=== PATIENT | male | born 1990 | race African-American/Black ===

== ENCOUNTER 2017-03-05 08:52 | Outpatient (CLI) | payer OTHER ==
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
== END 2017-03-05 08:53 | disposition home or self-care (01) ==
LOC: TBSIIMAG 08:52
PROVIDERS: ATTEND Family Medicine
DX: M23.91 Unspecified internal derangement of right knee (principal)

== ENCOUNTER 2017-05-18 09:34 | Outpatient (CLI) | payer OTHER ==
[2017-05-18 10:39] LABS: Hematocrit 47.6 % (42.0-52.0); Mean Platelet Volume 7.4 fL (7.4-10.4); Red Blood Cell (RBC) Count 5.24 mill/uL (4.70-6.10); White Blood Cell (WBC) Count 9.1 thou/uL (4.8-10.8)
[2017-05-18 11:04] LABS: Anion Gap 15 mmol/L (10-20); BUN (Urea Nitrogen) 16 mg/dL (8.9-20.6); Calc. Creatinine Clearance 0 mL/min (70-130); Carbon Dioxide 25 mmol/L (22-29); Chloride 104 mmol/L (98-107); Estimated GFR-MDRD Greater than 90
--- NOTE | 2017-05-18 12:25 | EKG ---
Test Reason : Blood Pressure : / mmHG Vent. Rate : 071 BPM Atrial Rate : 071 BPM P-R Int : 190 ms QRS Dur : 102 ms QT Int : 372 ms P-R-T Axes : 057 027 020 degrees QTc Int : 404 ms Normal sinus rhythm RSR' or QR pattern in V1 suggests right ventricular conduction delay Borderline ECG No previous ECGs available Confirmed by ROSIBEL DEVRIES ([id number]) on 05/18/2017 12:25:12 PM Referred By: ALEXANDER Confirmed By:ROSIBEL DEVRIES
== END 2017-05-18 09:35 | disposition home or self-care (01) ==
LOC: LABBT 09:34
PROVIDERS: ATTEND Orthopaedic Surgery
DX: Z01.812 Encounter for preprocedural laboratory examination (principal); S83.511A Sprain of anterior cruciate ligament of right knee, initial encounter; S83.421A Sprain of lateral collateral ligament of right knee, initial encounter; S83.411A Sprain of medial collateral ligament of right knee, initial encounter
CPT/HCPCS: 80048; 85027; 93005; 93010

== ENCOUNTER 2017-05-22 06:54 | Day surgery (SDC) | payer OTHER ==
[2017-05-18 09:56] VITALS: BMI 43.3
[2017-05-22] MEDS ORDERED: CEFAZOLIN/Water 2 GM/20 ML SYRINGE ONE (07:40)
[2017-05-22] MEDS ORDERED: Midazolam HCl 2 mg/2 ml Vial ONE ×2 (08:12→08:49)
[2017-05-22] MEDS ORDERED: Fentanyl 100 MCG/2 ML VIAL ONE ×2 (08:13→08:49)
[2017-05-22] MEDS ORDERED: HYDROcodone/Acetaminophen 7.5/325 mg Tablet ONE ×2 (14:05)
--- NOTE | 2017-05-22 14:09 | OP ---
DATE OF PROCEDURE: 05/22/2017 PREOPERATIVE DIAGNOSES: Right anterior cruciate ligament high grade tear, lateral meniscus tear, chondral defect medial patellar facet, a pivot shift bone contusion, sprained MCL, sprained LCL. POSTOPERATIVE DIAGNOSES: 1. Right ACL high grade full thickness tear. 2. Lateral meniscus tear, stable. 3. Chondral defect medial patella facet. 4. MCL strain. 6. LCL sprain, stable exam. PROCEDURE PERFORMED: 1. Right ACL bone tendon bone reconstruction. 2. Debridement patellar chondral defect. STAFF: Lj Boucher M.D. SCRAP SAWYER: DAGOBERTO Childs ANESTHESIA: Marvin. The patient received a LMA with single-shot femoral block. ESTIMATED BLOOD LOSS: 75 mL. TOURNIQUET TIME: 91 minutes. ANTIBIOTICS: Ancef 2 grams. IMPLANTS: Arthrex metal interference screw 20 x 8 and 25 x 8. COMPLICATIONS: The patient had full thickness cartilage segment of medial femoral condyle injured during positioning of olive tip reamer for opening femoral tunnel HISTORY OF PRESENT ILLNESS: Mr. Lynn is a 26-year-old male who presented with a left knee instability. The patient had a previous history had a fall or yet a gentleman at the [employer] fell and tore his ACL. The patient had a fall, fell down tore the ACL. The patient received cardiac clearance, he has a previous history of cardiac abnormality. I discussed with the patient the risks and benefits of surgery to include pain, scar, bleeding, infection, damage to vital structures to include nerves, arteries, tendon, cartilage, bone , long-term risk of stiffness, arthritis, need for further surgeries, failure of the procedure, continued pain despite surgical intervention. The patient understood these risks and benefits and elected to proceed. PROCEDURE IN DETAIL: After timeout was performed, the patient's right lower extremity was designated as the operative site based on sight, consents, markings. After completion of timeout, the patient's right lower extremity was prepped and draped in sterile fashion. Tourniquet was brought in a sterile fashion. I started with anterior lateral and anteromedial portals, visualized the ACL. The patient has symmetric exam when I examined him and I was concerned that he might have the ACL intact. I visualized the ACL and saw that it was torn, there were a few remnant fibers off the back wall therefore after I excised my fat pad, I completed this. I started making an anterior midline incision, came down through the peritenon down the tendon. I took 10 mm graft with bone plugs 25 and 30 respectively, 25 from the patella, 30 from the tibia, which were sized to a 10 and 11. We then closed the tendon with 0 with a running stitch. We then put the scope back in our previous portals. We debrided out the fat pad more, freed up the ACLs, started my notchplasty, then I looked at the patellofemoral, I looked at the medial joint space which did not show any full thickness defects or cartilage defects. I moved to the lateral joint space. I looked at the medial meniscus tear which was stable. I did not see a full through and through tear it did not practice billing associate or sublux in the joint, given the ACL reconstruction I felt he would benefit from just non- conservative management of the lateral meniscus tear. I looked in the patellofemoral joint. There was a defect at the cartilage that was flap down which I debrided and shaved off, looked for loose bodies. I took medial and lateral gutters. I then moved my attention back to the notch, I performed my notchplasty, putting my johnathon in positioning for my rirh-zky-esh guide, I liked the overall notchplasty. I then placed my lawf-fgy-rde guide for a 10 mm hole. We drilled, placed in about the 10:30 position. We then drilled about a 35 mm hole, a size 10 onto the tip, drill. Looking and trying to pass the drill in , it was being oscilated past the soft tissue and got a portion of the patient' s medial femoral condyle as it plunged passing over the guide pin. The portion of the cartilage defect did not appear to be the main weightbearing portion of the patient's joint surface. On flexion and extension, we then turned our attention to the tibia, placed our xkqu-dhr-xza guide, point to point within the ACL stump. We drilled about 40 mm tunnel, 11 mm in diameter. We then debrided out and exposed the tunnel to ensure we could have safe passage of our graft, we had pulled the sutures through the hole with our Beath pin to ensure we could pass our graft. We then cleaned up the graft site, passed our graft into position, looked under fluoroscopic guidance, we then placed our nitinol wire and 8 x 20 mm screw, had a firm stable fixation on the patient's femur. We then moved back to the patient's tibia. We then cycled the knee. We placed an anterolaterally placed the pin to position graft in appropriate position, we cycled it, put the patient in about 10 degrees to 15 degrees of flexion in medial posterior drawer drawer and put our screw in. The patient had good range of motion, stable knee on exam. We then washed. We used our bone debris to place in our patella as well as in our tibia. We closed with 0, 2-0 and chris. Tourniquet was let down after 91 minutes. The patient will be weightbearing as tolerated, range of motion as tolerated. The patient will follow up me in clinic in 2 weeks. PHILIP
[2017-05-22] MEDS ORDERED: ePHEDrine/0.9% NaCl/PF SYRINGE 50 mg/10 ml ONE (16:40)
[2017-05-22] MEDS ORDERED: PHENYLEPHRINE-NS 100 MCG/ML 10 ML SYRINGE ONE (16:40)
[2017-05-22] MEDS ORDERED: Propofol 200 MG/20 ML VIAL ONE (16:40)
[2017-05-22] MEDS ORDERED: Ondansetron HCl/PF 4 MG/2 ML Vial ONE (16:40)
== END 2017-05-22 16:40 | disposition home or self-care (01) ==
LOC: SDC 06:54
PROVIDERS: ATTEND Orthopaedic Surgery
PROC: 0MSN4ZZ Reposition Right Knee Bursa and Ligament, Percutaneous Endoscopic Approach (ICD-10-PCS; principal; 2017-05-22)
PROC: 0SBC4ZZ Excision of Right Knee Joint, Percutaneous Endoscopic Approach (ICD-10-PCS; principal; 2017-05-22)
DX: S83.511A Sprain of anterior cruciate ligament of right knee, initial encounter (principal); S83.281A Other tear of lateral meniscus, current injury, right knee, initial encounter; S83.411A Sprain of medial collateral ligament of right knee, initial encounter; S83.421A Sprain of lateral collateral ligament of right knee, initial encounter; I10 Essential (primary) hypertension; R01.1 Cardiac murmur, unspecified; E66.9 Obesity, unspecified; Z68.41 Body mass index [BMI] 40.0-44.9, adult; Z79.899 Other long term (current) drug therapy; Z98.890 Other specified postprocedural states
CPT/HCPCS: C1713; G8978-GP-CM; G8979-GP-CM; G8980-GP-CM; J2250; J2405; J2704; J3010